=== PATIENT | male | born 1945 | race Two or more races ===

== ENCOUNTER 2024-01-21 17:56 | Emergency (ER) | payer OTHER, MEDICAID, SELFPAY ==
[2024-01-21 17:57] VITALS: BMI 39.7
--- NOTE | 2024-01-21 18:22 | EKG_ITS ---
[facility] Test Date: 2024-01-21 Pat Name: DIXIE MACKEY Department: Room: - Gender: Male Hunter Trapper: : 1945 Requested By: Johnny Romeo Order Number: [id number] Reading MD: Johnny Romeo Measurements Intervals [place] Rate: 50 P: 65 LA: 231 QRS: -57 QRSD: 143 T: 33 QT: 413 QTc: 377 Interpretive Statements SINUS BRADYCARDIA WITH FIRST DEGREE AV BLOCK WITH OCCASIONAL SUPRAVENTRICULAR PREMATURE COMPLEXES RIGHT BUNDLE BRANCH BLOCK [120+ ms QRS DURATION, UPRIGHT V1, 40+ ms S IN I/aVL/V4/V5/V6] LEFT ANTERIOR FASCICULAR BLOCK [QRS AXIS <= -45, QR IN I, RS IN II] MODERATE VOLTAGE CRITERIA FOR LVH, CONSIDER NORMAL VARIANT [MEETS CRITERIA IN ONE OF: R(aVL), S(V1), R(V5), R(V5/V6)+S(V1)] POSSIBLE SEPTAL MYOCARDIAL INFARCTION , OF INDETERMINATE AGE [30 ms Q WAVE IN V1/V2] No previous ECG available for comparison /store/[email or web address]/[id number].pdf
[2024-01-21 18:26] VITALS: BP 137/82; PULSE 78; RESP 20; TEMP 36.7; O2SAT 98
--- NOTE | 2024-01-21 18:34 | XR_ITS ---
Examination: AP chest single view Technique: AP upright portable chest single view Exam date 9: January 21, 2024 1844 hrs. Indications: Patient fell today with injury to the chest, chest pain Findings: No pneumothorax Mild enlargement cardiac contour Mild vascular congestion Blunting of the costophrenic angles Atelectasis versus pneumonia at the lung bases Clavicles ribs appear intact Impression: Atelectasis versus pneumonia at the lung bases No pneumothorax
--- NOTE | 2024-01-21 18:34 | XR_ITS ---
Examination: CT brain head without contrast. 2-D sagittal coronal reconstructions Date and time of exam:January 21, 2024 1907 hrs. Comparison: September 24, 2021 CTDI: vol (mGy):49.2 DLP: (mGycm):917 Indications: Patient fell today with injury to the head, head pain weakness Technique: Multiple CT axial sections of the brain have been obtained, 5 mm slice thickness. Contrast has not been administered. 2-D sagittal, coronal reconstructions have been obtained Low dose protocols were performed. One or more of the following dose reduction techniques were used; automated exposure control, adjustment of the mA and/or KV according to patient size, use of iterative reconstruction technique. Findings: No significant ventricular enlargement. Intra-axial or extra-axial hemorrhage density is not seen. No mass effect or midline shift Basal cisterns are not remarkable. Fourth ventricle is midline. Cranial vault intact. Impression: Negative for acute hemorrhage, mass effect or midline shift
--- NOTE | 2024-01-21 18:34 | XR_ITS ---
Examination: CT lumbar spine without intravenous 2-D sagittal reconstructions. 2-D coronal reconstructions. 3-D reconstructions. Date and time of exam:January 21, 2024 1909 hrs. Indications: Lower back pain onset today CTDI: vol (mGy):2 DLP: (mGycm):1125 Technique: Multiple 1.25 mm axial sections of the lumbar spine without intravenous contrast have been obtained. 2-D sagittal and coronal reconstructions have been obtained. 3-D reconstructions have been obtained. Low dose protocols were performed. One or more of the following dose reduction techniques were used; automated exposure control, adjustment of the mA and/or KV according to patient size, use of iterative reconstruction technique. Findings: Prominent osteopenia Advanced disc and posteriorly L5-S1 No lumbar vertebral body compression fracture Moderate lumbar spondylosis Lumbar pedicles laminated transverse and posterior spinous processes intact L5-S1 moderate overall spinal stenosis, 3 mm central lumbar disc bulge, facet arthropathy and thickening of ligamenta flava with mild bilateral L5 ganglionic compression L4-L5 severe spinal stenosis, 6 mm central lumbar disc bulge, facet arthropathy and thickening of ligamenta flava with moderate left mild right L4 ganglionic compression L3-L4 3 mm central lumbar disc bulge L2-L3 no disc protrusion L1-L2 no disc protrusion Impression: L5-S1 moderate overall spinal stenosis L4-L5 severe acquired spinal stenosis as above No acute lumbar fracture
--- NOTE | 2024-01-21 18:35 | EDRME_ITS ---
Rapid Medical Screening Exam [facility] Arrival date/time: 01/21/24 17:56 78M with history of HTN and HLD presents to ED with 1 week of worsening imbalance/weakness/falls. It started when patient was told to start taking fenofibrate instead of pravastatin. He started feeling more weak/imbalanced, which lead to a fall on Thursday where he hit is lower back. Since then, he's had bilateral leg weakness, numbess, and inability to walk. Chief Complaint: General Adult/Misc Complain Vital signs: Vital Signs Temperature 98.0 F 01/21/24 18:26 Pulse Rate 78 01/21/24 18:26 Respiratory Rate 20 01/21/24 18:26 Blood Pressure 137/82 H 01/21/24 18:26 Pulse Oximetry (%) 98 01/21/24 18:26 Oxygen Delivery Method Room Air 01/21/24 18:26
[2024-01-21 19:13] LABS: Basophils % (Auto) 0 % (0-2.5); Eosinophils # (Auto) 0.1 Thou/mm3 (0.0-0.5); Eosinophils % (Auto) 1 % (0-10); Hematocrit 48.4 % (41.0-53.0); Hemoglobin 15.9 g/dL (13.5-16.0); Immature Granulocytes % (Auto) 1 % (0-0); Immature Granulocytes Auto 0.04 Thou/mm3 (0.00-0.00); Lymphocytes # (Auto) 3.1 Thou/mm3 (1.0-4.8); Lymphocytes % (Auto) 35 % (10-50); Mean Corpuscular HGB Conc 32.9 g/dl (31.0-37.0); Mean Corpuscular Hemoglobin 28.3 pg (25.0-35.0); Mean Corpuscular Volume 86 fL (80-100); Monocytes # (Auto) 0.7 Thou/mm3 (0.0-0.8); Monocytes % (Auto) 7 % (0-12); Neutrophils # (Auto) 4.9 Thou/mm3 (1.8-7.7); Neutrophils % (Auto) 56 % (37-80); Nucleated Red Blood Cell % 0 /100 WBC (0); Platelet Count 203 Thou/mm3 (140-440); RDW Standard Deviation 47.9 fL (35.1-43.9); Red Blood Count 5.61 Miln/mm3 (4.50-5.90); White Blood Count 8.8 Thou/mm3 (3.8-10.6)
[2024-01-21 19:15] LABS: Alanine Aminotransferase 15 U/L (10-49); Albumin, Serum 4.9 gm/dL (3.4-4.8); Albumin/Globulin Ratio 1.4 (1.2-2.2); Alkaline Phosphatase 69 U/L (46-116); Anion Gap 7 (7-16); Aspartate Amino Transferase 18 U/L (0-34); BUN/Creatinine Ratio 14 Ratio (12-20); Bilirubin,Total 0.3 mg/dL (0.3-1.2); Blood Urea Nitrogen 13 mg/dL (9-23); Calcium 9.5 mg/dL (8.3-10.6); Calcium (Corrected) 9.5 mg/dL (8.5-10.1); Carbon Dioxide 27.1 mMol/L (20.0-31.0); Chloride 103 mMol/L (98-107); Creatine Kinase 98 U/L (34-171); Creatinine (Component) 0.9 mg/dL (0.6-1.3); Estimated Creatinine Clearance 79.3 mL/min (>60); Globulin 3.5 gm/dL (2.3-3.5); Glucose 101 mg/dL (74-106); Osmolality,Calculated 273 (275-295); Potassium 4.1 mMol/L (3.4-5.1); Sodium 137 mMol/L (136-145); Total Protein 8.4 gm/dL (5.7-8.2); Troponin I < 0.020 ng/mL (0.0-0.045); eGFR > 60 See Note
[2024-01-21 19:26] LABS: Collection Type, Urine Clean Catch; Squamous Epithelial Cell,Urine 0 /hpf (0-5)
[2024-01-21 19:43] LABS: Bilirubin,Urine Negative (Negative); Blood,Urine Negative (Negative); Clarity,Urine Clear (Clear/Hazy); Color,Urine Lt-Yellow (Lt Yel-Yel); Culture Indicated,Urine Not Indicated; Glucose, Urine 3+ (Negative); Ketones,Urine Negative (Negative); Leukocyte Esterase,Urine Negative (Negative); Nitrite,Urine Negative (Negative); Protein,Urine Negative (Neg - Trace); RBC,Urine 1 /hpf (0-3); Specific Gravity,Urine 1.015 (1.001-1.035); Urobilinogen,Urine Negative mg/dL (0.0-1.0); WBC,Urine < 1 /hpf (0-5)
[2024-01-21 20:04] VITALS: BP 125/75; PULSE 70; RESP 18; TEMP 36.9; O2SAT 96
[2024-01-21 20:33] VITALS: BP 134/77; PULSE 68; RESP 19; TEMP 36.6; O2SAT 97
--- NOTE | 2024-01-21 21:45 | EDNOTE_ITS ---
<Statement entered by Renee Mahan MD - 01/22/24 19:20> As co-signing physician, I was present and available for consult prn. I concur with the plan and care as documented by the midlevel provider. ED Fall Injury RME/HPI General Chief Complaint: General Adult/Misc Complain Stated Complaint: BILATERAL LEG WEAKNESS/ TINGLING / FALL Time Seen by Provider: 01/21/24 21:16 Arrival date/time: 01/21/24 17:56 RME / HPI RME / HPI Narrative: 78M with history of HTN and HLD presents to ED with 1 week of worsening imbalance/weakness/falls. It started when patient was told to start taking fenofibrate instead of pravastatin. He started feeling more weak/imbalanced, which lead to a fall on Thursday where he hit is lower back. Since then, he's had bilateral leg weakness, numbess, and difficulty ambulating without the walker. Patient denies any urinary incontinence denies any bowel incontinence denies any saddle anesthesia. Related Data Home Medications ?Medication ?Instructions ?Recorded ?Confirmed piroxicam 10 mg capsule (Feldene) PO QDAY #0 caps 10/15/14 donepezil 10 mg tablet (Aricept) 10 mg PO HS #0 tabs 02/17/15 famotidine 20 mg tablet (Pepcid) 20 mg PO HSPRN PRN STOMACH ACID #0 02/17/15 tabs pravastatin 20 mg tablet 20 mg PO HS #0 tabs 02/17/15 (Pravachol) Allergies Allergy/AdvReac Type Severity Reaction Status Date / Time No Known Allergies Allergy Verified 09/24/21 16:11 Review of Systems Review of Systems Narrative Review of Systems: Review of system reviewed and within normal limits except mentioned in HPI ED Exam Narrative Physical exam: VITAL SIGNS: Reviewed. GENERAL APPEARANCE: Alert and interactive, follows commands, no acute distress, HEAD AND FACE: Non-traumatic. ENT: PERRL, pink conjunctivitis, eyelid no trauma, Mucous membrane moist. NECK: Supple, nontender, no nuchal rigidity. CHEST: No tenderness, no crepitus, no paradoxical movement, no retractions. LUNGS: Clear, well ventilated, symmetric, no rales, no wheezing, no ronchi, no stridor, good breath sounds bilaterally. HEART: Regular rate, regular rhythm, no murmur, no gallops. ABDOMEN: Soft, positive bowel sounds, nondistended, no guarding, nontender, no rebound, no masses, RECTAL: Deferred. GENITAL: Deferred. NEUROLOGICAL: Gross motor function intact sensory function intact, Appropriate for age. Deep tendon reflexes +2 bilateral MUSCULOSKELETAL: low back nontender, full range of motion. EXTREMITIES: Nontender, full range of motion. SKIN: Color pink, dry, no rash, no lacerations, no abrasions, no contusions. LYMPHATICS: Deferred. Course Quality Measures none Orders Category Date Time Status Blood glucose [Bedside Blood Glucose] NOW Care 01/21/24 18:22 Active EKG (ED ONLY) *Do not use* NOW Care 01/21/24 18:[address] head/brain wo con Stat Exams 01/21/24 18:[address] lumbar spine wo con Stat Exams 01/21/24 18:34 Completed EKG (ED Only) Stat Exams 01/21/24 18:22 Draft XR chest 1V portable Stat Exams 01/21/24 18:34 Completed CBC Stat Lab 01/21/24 18:43 Completed Comprehensive Metabolic Panel Stat Lab 01/21/24 18:43 Completed Creatine Kinase Stat Lab 01/21/24 18:43 Completed Troponin I Stat Lab 01/21/24 18:43 Completed Urinalysis, C/S if Indicated Stat Lab 01/21/24 19:18 Completed Vital Signs Vital signs: Vital Signs Temperature 98.0 F 01/21/24 18:26 Pulse Rate 78 01/21/24 18:26 Respiratory Rate 20 01/21/24 18:26 Blood Pressure 137/82 H 01/21/24 18:26 Pulse Oximetry (%) 98 01/21/24 18:26 Oxygen Delivery Method Room Air 01/21/24 18:26 Fall MDM Narrative MDM Narrative:: 78M with history of HTN and HLD presents to ED with 1 week of worsening imbalance/weakness/falls. It started when patient was told to start taking fenofibrate instead of pravastatin. He started feeling more weak/imbalanced, which lead to a fall on Thursday where he hit is lower back. Since then, he's had bilateral leg weakness, numbess, and difficulty ambulating without the walker. Patient denies any urinary incontinence denies any bowel incontinence denies any saddle anesthesia. CT scan of the head came back unremarkable. CT scan of the lumbar spine showed lumbar stenosis noted on L4-L5 L5-S1. Results discussed with the patient, patient was advised to to be admitted for further management however patient and family refused admission. Pt has normal mental status and adequate capacity to make medical decisions. Oriented x 4. The patient refuses evaluation and treatment and wants to be discharged. The risks have been explained to the patient, including progression of possible worsening of current disease, worsening illness, chronic pain, permanent disability and . The benefits of evaluation and treatment have also been explained, including the availability and proximity of nurses, physicians, monitoring, diagnostic testing, and treatments. The patient was able to understand and state the risks and benefits of AMA.Patient had the opportunity to ask questions about their medical condition. He left hospital against medical advice. Patient data External records reviewed:: None Clinical information provided by:: none Social determinants that could affect healthcare access:: none Patient has the following chronic illnesses:: Dementia, hypercholesterolemia How is presenting disease/condition affected by chronic disease/condition?: exacerbated by Evaluation data The following diagnostics were reviewed and interpreted by me:: lab results and radiology exam(s) Lab and/or radiology exams considered but not ordered:: None Interpretation Summary: Laboratory workup back unremarkable. CT scan of the head came back unremarkable CT scan of the lumbar spine showed L5-S1 moderate overall spinal stenosis L4-L5 severe acquired spinal stenosis as above No acute lumbar fracture Medications / Prescriptions Medications or Prescriptions considered but not ordered:: None Medication administrations:: None Consultations Consultation(s) initiated? (list below): No Diagnosis Fall Differential Diagnosis: other (Muscle weakness bilateral lower extremity, lower extremity weakness secondary to spinal stenosis, Guillain-Carlisle? syndrome) Most likely diagnosis given after review of the tests above:: Bilateral lower extremity weakness, lumbar spinal stenosis Admission Indicated Admission indicated?: indicated Explain why admission is indicated or not indicated:: Patient refuses admission patient signed AMA Admission Request Was there a request for admission?: No Disposition Plan Disposition Plan: other (specify) Discharge Plan Plan Patient Disposition: HOME (Self Care) Disposition Comment: stable Prescriptions/Referrals Prescriptions/Med Rec: No Action piroxicam [Feldene] 10 MG capsule PO QDAY Qty: 0 donepezil [Aricept] 10 MG tablet 10 mg PO HS Qty: 0 pravastatin [Pravachol] 20 MG tablet 20 mg PO HS Qty: 0 famotidine [Pepcid] 20 MG tablet 20 mg PO HSPRN PRN (Reason: STOMACH ACID) Qty: 0 Patient Comments: TO SUPPRESS GASTRIC ACID SECRETION Referrals: No Primary/Family,Physician [Primary Care Provider] - In 1 week Problem List Clinical Impression: Bilateral leg weakness, Lumbar spinal stenosis Patient/Caregiver Discharge Instructions Print Language: B[place]udian Stand Alone Forms: [employer] Award Info., Patient Portal Info Letter
== END 2024-01-21 22:15 | disposition home or self-care (01) ==
PROVIDERS: Physician Assistant; Emergency Provider Emergency Medicine
DX: R53.1 Weakness (principal); M48.061 Spinal stenosis, lumbar region without neurogenic claudication; E78.5 Hyperlipidemia, unspecified; I10 Essential (primary) hypertension
CPT/HCPCS: 36415; 70450; 71045; 72131; 80053; 81001; 82550; 84484; 85025; 93005; 99284

== ENCOUNTER → 2024-03-11 | Outpatient (CLI) | payer OTHER, MEDICAID, SELFPAY ==
--- NOTE | 2024-03-11 15:30 | XR_ITS ---
Examination: MRI lumbar spine without contrast Date and time of exam: March 11, 2024 at 1725 hours INDICATIONS: Onset lower back pain radiating to legs with weakness in the legs beginning 2 months ago Technique: Multiple MRI axial and sagittal sections lumbar spine. Sagittal T2-weighted images, TR 3500, TE 118 T1 weighted transverse sections, TR 688 T8.5, T2-weighted sagittal sections T1 weighted sagittal sections TR 621, TE 30 T2 axial sections, TR 4, 190, TE 84. Findings: Adequate alignment lumbar vertebral bodies on the lateral view. No lumbar fracture Diffuse lumbar disc desiccation Moderate distention posteriorly L5-S1 No spondylolisthesis L5-S1 5 mm central lumbar disc bulge contiguous with the right and left S1 nerve roots L4-L5 severe spinal stenosis, 4 mm central lumbar disc bulge, facet arthropathy and thickening of ligamentum flavum circumferentially narrowing the thecal sac, axial image 5 L3-L4 severe overall spinal stenosis, 4 mm central disc bulge, prominent facet arthropathy and thickening of ligamentum flavum, axial image 8 L2-L3 foraminal disc bulges but no ganglionic compression L1-L2 no disc protrusion IMPRESSION: L5-S1 5 mm on the lumbar disc bulge contiguous with the right and left S1 nerve roots L4-L5, L3-L4 severe overall spinal stenosis as above
== END | disposition home or self-care (01) ==
PROVIDERS: PCP Family Medicine; Referring Provider Family Medicine; Visit Provider Family Medicine
DX: M51.379 Other intervertebral disc degeneration, lumbosacral region without mention of lumbar back pain or lower extremity pain (principal); M48.061 Spinal stenosis, lumbar region without neurogenic claudication
CPT/HCPCS: 72148

== ENCOUNTER → 2024-10-07 | Outpatient (CLI) | payer OTHER, MEDICAID, SELFPAY ==
--- NOTE | 2024-10-07 12:09 | XR_ITS ---
Examination: Thoracic spine 3 views Technique one AP lateral coned lateral upper dorsal spine 3 views Date and time: October 07, 2024 1236 hours INDICATIONS: Back pain years, status post thoracic spine fusion 2024. FINDINGS: Severe osteopenia Transpedicular thoracic stabilization T11-T12 with prominent anterior osteophyte formation No acute thoracic fracture Moderate diffuse thoracic disc narrowing IMPRESSION: Moderate diffuse thoracic degenerative disc disease
== END | disposition home or self-care (01) ==
PROVIDERS: PCP Family Medicine; Referring Provider Physician Assistant; Visit Provider Physician Assistant
DX: M51.34 Other intervertebral disc degeneration, thoracic region (principal)
CPT/HCPCS: 72070